=== PATIENT | female | born 1960 | race Two or more races ===

== ENCOUNTER 2019-01-23 00:01 | Emergency (ER) | payer SELFPAY ==
[~2019-01-23] VITALS: Ht 162.6 cm; Wt 72.6 kg
[2019-01-23 00:03] VITALS: BP 105/75
== END 2019-01-23 02:00 | disposition left against medical advice (07) ==
LOC: ER 00:04
DX: R42 Dizziness and giddiness (principal); R55 Syncope and collapse; Z53.21 Procedure and treatment not carried out due to patient leaving prior to being seen by health care provider